=== PATIENT | female | born 1980 | race African-American/Black ===

== ENCOUNTER 2023-11-16 13:02 | Emergency (ER) | payer OTHER, SELFPAY ==
[2023-11-16 13:14] VITALS: BP 112/74
[2023-11-16 13:53] LABS: % Basophils 0.6 % (0-2); % Eosinophils 0.3 % (0-6); % Lymphocytes 54.6 % (20.5-51.1); % Monocytes 7.6 % (1.7-9.3); % Neutrophils 36.9 % (42.2-75.2); Absolute Lymphocytes 1.7 10^3/uL (1.2-3.4); Absolute Monocytes 0.2 10^3/uL (0.1-0.6); Absolute Neutrophils 1.2 10^3/uL (1.4-6.5); Mean Corp Hgb Conc. 32.4 g/dL (33.0-37.0); Mean Corpuscular Hgb 29.4 pg (27.0-31.0); Mean Corpuscular Volume 90.9 fL (81.0-99.0); Nucleated Red Blood Cells % 0 %; Platelet Count 204 10^3/uL (130-400); Red Blood Cell Count 3.74 10^6/uL (4.20-5.40); Red Cell Dist. Width 12.3 % (11.5-14.5); White Blood Cell Count 3.2 10^3/uL (4.8-10.8)
[2023-11-16 14:03] LABS: ALT (SGPT) 14 U/L (0-35); AST (SGOT) 24 U/L (14-36); Albumin 4.9 g/dl (3.5-5.0); Alkaline Phosphatase 48 U/L (38-126); Blood Urea Nitrogen 11 mg/dl (7-17); Calcium 9.7 mg/dl (8.4-10.2); Carbon Dioxide 26 mmol/L (22-30); Chloride 103 mmol/L (98-107); Glucose 77 mg/dl (70-99); Sodium 136 mmol/L (135-145); Total Bilirubin 1.1 mg/dl (0.2-1.3); Total Protein 7.8 g/dl (6.3-8.2); eGFR > 60.00
[2023-11-16 14:15] LABS: Troponin I < 0.012 ng/ml
--- NOTE | 2023-11-16 16:24 | ED.GENMED ---
History of Present Illness
General
Chief Complaint: Heart Rate Problem
Time Seen by Provider: 11/16/23 16:24
Travel History
Have you had any contact with someone who has COVID-19?: No
Do you have any symptoms of coronavirus? Fever > 100 degrees, chills, cough, shortness of breath, sore throat, loss of taste or smell, muscle aches, or headache?: No
History of Present Illness
History of Present Illness:
HPI: The patient presents with palpitations more than a degree of chest discomfort. This happened while she was at [facility] traveling and went to an ER there and was told EKG was 'normal'. She was instructed to follow-up with operations lieutenant.
She has an upcoming appoint to see cardiology this coming Tuesday. She feels well-hydrated.
EXAM:
GENERAL: Well appearing in no distress
HEENT: Moist oral mucosa
CARDIOVASCULAR: No murmurs, normal heart rate, regular rhythm, No chest wall tenderness
PULMONARY: No respiratory distress, breath sounds are clear and equal
ABDOMEN: Soft with no peritoneal signs, no tenderness
NEUROLOGIC: Excellent strength all extremities, no coordination deficits
PSYCHIATRIC: Appropriate mental status, normal insight and judgement, appears somewhat upset that we are not able to give a clear answer as to the etiology of her symptoms
EXTREMITIES: Nontender, no edema, moves all extremities equally
SKIN: No rash, no lesions
TIME OF INITIAL ENCOUNTER: 4:30 PM
NUMBER AND COMPLEXITY OF PROBLEMS ADDRESSED AT THE ENCOUNTER
� Chronic conditions affecting care: Anemia and has required transfusion in the past
� Acute Exacerbation and/or Progression of Chronic Illness: This is an acute problem
� Differential Diagnosis includes: Symptomatic PVCs/PACs, worsening anemia, ACS unlikely, electrolyte normality, dehydration
AMOUNT AND/OR COMPLEXITY OF DATA TO BE REVIEWED AND ANALYZED
� I performed an independent evaluation of and my interpretation is:
EKG: Sinus 68, normal intervals, no acute ST abnormality
CT:
X-rays:
Laboratory Studies: White count 3.2, hemoglobin 11.0, chemistries and troponin negative
Other:
� Review of other/old records: I reviewed records. The patient had an exercise stress test 08/24/2023 which was felt to be 'low risk'
� Clinical information was obtained by an independent historian: None
� Prescriptions/Medications Considered but not given:
� Further testing considered but not performed:
RISK OF COMPLICATIONS AND/OR MORBIDITY OR MORTALITY OF PATIENT MANAGEMENT
� Social determinants of health affecting care: Lives at home
� Discussion with other providers:
� Escalation of care including admission/observation vs risk of discharge considered: I reassessed the patient twice in the ED. Both times she had a normal rhythm with no ectopy. There is no evidence for SVT, A-fib, or PVCs.
Her EKG is normal and her blood work is relatively unremarkable except for some mild anemia which she states has been worse in the past.
Phy Exam
Physical Exam
Physical Exam:
See HPI
Course
Orders/Labs/Results
Orders:
Orders
11/16/23 13:04
EKG [Electrocardiogram (*1)] Urgent
Reason for Study: Chest Pain
EKG- Treatment ONCE
11/16/23 13:36
Complete Blood Count/With Diff Urgent
Comprehensive Metabolic Panel Urgent
Troponin I Urgent
Abnormal Lab Results
11/16/23
13:36
WBC 3.2 L 10^3/uL
(4.8-10.8)
RBC 3.74 L 10^6/uL
(4.20-5.40)
Hgb 11.0 L g/dL
(12.0-16.0)
Hct 34.0 L %
(37.0-47.0)
MCHC 32.4 L g/dL
(33.0-37.0)
Absolute Neuts (auto) 1.2 L 10^3/uL
(1.4-6.5)
Neutrophils % 36.9 L %
(42.2-75.2)
Lymphocytes % 54.6 H %
(20.5-51.1)
11/16/23 13:36
11/16/23 13:36
Vital Signs
Initial and Last Documented VS:
Initial Vital Signs
Temp Pulse Resp BP Pulse Ox
98.7 F 64 18 112/74 99
11/16/23 13:14 11/16/23 13:14 11/16/23 13:14 11/16/23 13:14 11/16/23 13:14
Last Documented Vital Signs
Temp Pulse Resp BP Pulse Ox
98.7 F 64 18 112/74 99
11/16/23 13:14 11/16/23 13:14 11/16/23 13:14 11/16/23 13:14 11/16/23 13:14
*Critical Care Note
Total Time (30-74mins, 75-104mins- exclusive of procedures): Not Applicable
ED Attending Note
-
Portions of this chart may have been created with voice recognition software.� Occasional wrong word or��sound alike� substitutions may have occurred due to the inherent limitations of voice recognition software.
Discharge Plan
Departure
Patient Disposition: Home (Routine Discharge)
Date of Disposition: 11/16/23
Time of Disposition: 16:52
Patient with high blood pressure during this ER visit?: Yes
Discharge Problem:
Palpitations
Referrals:
Sofi Whitten MD [Family Provider] -
Activity Restrictions/Additional Instructions:
The cause of your symptoms is unclear. Your hemoglobin is slightly low but nowhere near blood transfusion type of level. Your electrolytes are normal. Your cardiac blood test looking for signs of heart attack called a troponin is normal. Your
EKG is normal. I recommend that you follow-up with your operations lieutenant as you said you are going to do on this coming Tuesday. Here if worse.
Interventions
Interventions:
*Risk Screen - Suicide Last Done: 11/16/23 13:14
*Neglect/Abuse Screening Last Done: 11/16/23 13:14
*ED COVID-19 Vaccine History Last Done: 11/16/23 13:14
Discharge Date and Time
Print Language: AZERI
== END 2023-11-16 17:00 | disposition home or self-care (01) ==
LOC: EMR 13:02
PROVIDERS: Student in an Organized Health Care Education/Training Program; EMERGENCY PHYSICIAN Emergency Medicine; FAMILY PHYSICIAN Family Medicine
DX: R00.2 Palpitations (principal); R07.89 Other chest pain; R03.0 Elevated blood-pressure reading, without diagnosis of hypertension; D64.9 Anemia, unspecified
CPT/HCPCS: 99283; 80053; 84484; 85025; 93005

== ENCOUNTER 2023-12-12 12:24 | Day surgery (SDC) | payer OTHER, SELFPAY ==
[2023-12-12 13:53] VITALS: BMI 26.5
--- NOTE | 2023-12-12 14:00 | ITS.CL.IMPLP ---
[employer] - Implant Loop
Implant Loop
Procedure Report:
Date of Procedure: December 12, 2023
Primary Care Provider: Dr Sofi Whitten
Primary freight car repairer: Dr Amada Emanuel
Procedure: Insertable Loop Recorder Implantation
Indication:
Ventricular tachycardia, PVCs, Palpitations
Procedure:
The patient was brought to the procedure area in a fasting state. The anterior chest was prepped and draped in standard sterile fashion. The fourth intercostal space along the left sternal border was identified and this area was anesthetized with 10
mL of 1% lidocaine. After gathering the skin in this area, a small punch incision was made at approx intercostal space 4-5 at left costo-sternal junction using the provided scalpel/punch tool. The loop recorder was loaded into the tunneling device.
A tunnel was created in the subcutaneous tissue at a 45� angle along the coronal plane away from the sternum and towards the left flank. The tunneling device was inverted and the plunger was depressed, inserting the loop recorder into the
subcutaneous space. The tunneling device was removed. Manual pressure provide hemostasis. Adequate signal was confirmed. The skin was closed with steri-strips. The estimated blood loss was < 1 cc. A clean dressing was placed over the wound.
There were no complications.
Implant:
[employer] Reveal LINQ
Conclusion: Uncomplicated implantation of loop recorder.
Recommendation: Routine ILR care.
Copy:
Dr Sofi Whitten
Dr Amada Emanuel
== END 2023-12-12 14:08 | disposition home or self-care (01) ==
LOC: CATH 12:24
PROVIDERS: ATTENDING PHYSICIAN Internal Medicine Cardiovascular Disease; FAMILY PHYSICIAN Family Medicine
DX: Z09 Encounter for follow-up examination after completed treatment for conditions other than malignant neoplasm (principal); R00.2 Palpitations; I49.3 Ventricular premature depolarization; I47.20 Ventricular tachycardia, unspecified; R07.89 Other chest pain
CPT/HCPCS: 33285; C1760; C1764

== ENCOUNTER → 2024-08-16 09:04 | Outpatient (REF) | payer OTHER, SELFPAY | LOC: RCS 09:04 | PROVIDERS: ATTENDING PHYSICIAN Internal Medicine Interventional Cardiology; FAMILY PHYSICIAN Family Medicine | DX: R00.2 Palpitations (principal) | CPT/HCPCS: 93306 ==

== ENCOUNTER → 2024-11-12 10:07 | Outpatient (REF) | payer OTHER, SELFPAY | LOC: RAD 10:07 | PROVIDERS: ATTENDING PHYSICIAN Internal Medicine Interventional Cardiology; FAMILY PHYSICIAN Family Medicine | DX: R07.9 Chest pain, unspecified (principal) | CPT/HCPCS: 75574; Q9967 ==